=== PATIENT | female | born 1945 | race Caucasian/White ===

== ENCOUNTER 2023-05-22 14:56 | Outpatient (CLI) | payer BC, SELFPAY | END 2023-05-22 14:57 | disposition home or self-care (01) | PROVIDERS: PCP Family Medicine; Visit Provider Family Medicine | DX: E04.1 Nontoxic single thyroid nodule (principal); E78.5 Hyperlipidemia, unspecified; R53.83 Other fatigue; Z13.6 Encounter for screening for cardiovascular disorders | CPT/HCPCS: 80053; 80061; 84443 ==

== ENCOUNTER 2023-11-30 13:08 | Emergency (ER) | payer MEDICARE, SELFPAY ==
[2023-11-30 13:19] VITALS: BP 163/83; PULSE 69; RESP 16; TEMP 36.9; O2SAT 96; BMI 23.5
--- NOTE | 2023-11-30 14:02 | ED_ITS ---
HPI - Fall General Time Seen by Provider: 14:02 <Bertha Gallego MD - Last Filed: 11/30/23 16:10> Date Seen: 11/30/23 <Bertha Gallego MD - Last Filed: 11/30/23 16:10> Chief Complaint: Fall/Minor Trauma <Bertha Gallgeo MD - Last Filed: 11/30/23 16:10> Stated Complaint: Fall 6 ago, L ribs injury <Bertha Gallego MD - Last Filed: 11/30/23 16:10> Time Seen by Provider: 11/30/23 14:02 <Bertha Gallego MD - Last Filed: 11/30/23 16:10> Source: patient <Bertha Gallego MD - Last Filed: 11/30/23 16:10> Mode of arrival: ambulatory <Bertha Gallego MD - Last Filed: 11/30/23 16:10> Limitations: no limitations <Bertha Gallego MD - Last Filed: 11/30/23 16:10> History of Present Illness HPI Narrative: Audrey is a very pleasant 78-year-old female with a history of insomnia, anxiety, chronic neck and back pain who comes to the [facility] with her for complaints of left-sided chest pain. Audrey has recently been started on Ambien for insomnia and 6 days ago was up in the middle of the night admit in the kitchen cooking. She does remember this but does not remember being in the bathroom but was told that she was standing on 1 leg looking at her other leg and fell. She struck her left ribs against the bathtub. She had significant pain and it is continuing and she was unable to sleep last night. She notes that she is trying to avoid coughing and has not had any hemoptysis. The pain is quite severe when she coughs or moves. She is needing to stand up straight because of the discomfort. She is taking Tylenol for pain but it does not seem to be working. She denies abdominal pain or vomiting. <Bertha Gallego MD - Last Filed: 11/30/23 16:10> Related Data Home Medications: Home Medications Medication Instructions Recorded Confirmed multivitamin 1 tab PO QDAY 06/25/22 11/30/23 calcium carbonate 600 mg calcium 600 mg PO Q OTHER DAY 06/26/22 11/30/23 (1,500 mg) tablet (Calcium) magnesium oxide 400 mg (241.3 mg 400 mg PO Q OTHER DAY 06/26/22 11/30/23 magnesium) tablet Previous Rx's Medication Instructions Recorded escitalopram oxalate 20 mg tablet 20 mg PO QDAY #90 tabs 06/19/23 zolpidem 5 mg tablet (Ambien) 2.5 - 5 mg (0.5 - 1 x 5 mg) PO QHS 11/19/23 PRN insomnia #30 tabs tramadol 50 mg tablet 50 mg PO Q6H PRN pain #90 tabs 11/24/23 oxycodone 5 mg tablet 5 mg PO Q4H PRN pain #14 tabs 11/30/23 <Bertha Gallego MD - Last Filed: 11/30/23 16:10> Allergies/Adverse Reactions: Allergies Allergy/AdvReac Type Severity Reaction Status Date / Time alendronate sodium Allergy Mild leg Verified 11/30/23 13:23 tingling Corticosteroids Allergy Mild nausea Verified 11/30/23 13:23 (Glucocorticoids) gabapentin Allergy Mild Unknown Verified 11/30/23 13:23 iodine Allergy Mild Unknown Verified 11/30/23 13:23 sertraline Allergy Mild Unknown Verified 11/30/23 13:23 <Bertha Gallego MD - Last Filed: 11/30/23 16:10> Review of Systems Status of ROS: Reports: 6 or more systems reviewed and unremarkable except as noted in History and below <Bertha Gallego MD - Last Filed: 11/30/23 16:10> [facility] Medical History: Medical History (Updated 11/30/23 @ 17:38 by Bertha Gallego MD) Mixed hyperlipidemia ?E78.2 - Mixed hyperlipidemia (ICD-10) Insomnia ?G47.00 - Insomnia, unspecified (ICD-10) Restless leg syndrome ?G25.81 - Restless legs syndrome (ICD-10) Thyroid nodule ?E04.1 - Nontoxic single thyroid nodule (ICD-10) Stress incontinence in female ?N39.3 - Stress incontinence (female) (male) (ICD-10) Osteoporosis (05/28/17) ?M81.0 - Age-related osteoporosis without current pathological fracture (ICD- 10) Ocular rosacea ?L71.8 - Other rosacea (ICD-10) Herpes zoster (02/24/21) ?B02.9 - Zoster without complications (ICD-10) Female genital prolapse ?N81.9 - Female genital prolapse, unspecified (ICD-10) Chronic neck and back pain ?M54.2 - Cervicalgia (ICD-10) ?M54.9 - Dorsalgia, unspecified (ICD-10) ?G89.29 - Other chronic pain (ICD-10) Generalized anxiety disorder ?F41.1 - Generalized anxiety disorder (ICD-10) Major depression, chronic ?F32.9 - Major depressive disorder, single episode, unspecified (ICD-10) <Bertha Gallego MD - Last Filed: 11/30/23 16:10> Surgical History: Surgical History (Updated 06/26/22 @ 06:06 by Jono Belcher MD) History of left breast biopsy ?Z98.890 - Other specified postprocedural states (ICD-10) <Bertha Gallego MD - Last Filed: 11/30/23 16:10> Social History: Social History (Updated 06/24/22 @ 14:33 by Audrey Jimenezlubna) Narrative: , 2 kids, homemaker, non smoker, no EtOH, medical marijuana use Smoking Status: Never smoker Do you use any of these nicotine containing products: None Second hand tobacco smoke exposure: No How often do you have a drink containing alcohol: 4 or more times a week How many standard drinks containing alcohol do you have on a typical day: 1 or 2 AUDIT-C Alcohol total score: 4 Non-prescribed substance use: denies use Little interest or pleasure in doing things: not at all Feeling down, depressed, or hopeless: not at all <Bertha Gallego MD - Last Filed: 11/30/23 16:10> Exam Narrative: Exam Narrative: I did review previous notes and past medical history. Audrey is alert and oriented. She is here with her is very loving and supportive. She is standing straight and very guarded in her movement. External ears eyes nose clear. Heart with regular rate and rhythm. Lungs are clear although it is very difficult to auscultate as she is unable to take a deep breath. I do think that there is it is a noted decreased breath sounds in the left lower lung. No obvious ecchymoses. Palpation over the lateral chest wall does cause discomfort. Fortunately no pain over thoracic spine. She is otherwise moving all of her extremities. Head is atraumatic normocephalic and there is no cervical midline tenderness. <Bertha Gallego MD - Last Filed: 11/30/23 16:10> Const: Vital Signs, click to edit/add: Vital Signs - 24 hr 11/30/23 13:19 Temperature 98.4 F Pulse Rate [Pulse Oximeter] 69 Respiratory Rate 16 Blood Pressure [Ri ght Upper Arm] 163/83 H Pulse Oximetry 96 Oxygen Delivery Me thod Room Air <Bertha Gallego MD - Last Filed: 11/30/23 16:10> Vital Signs, click to edit/add: Vital Signs - 24 hr 11/30/23 13:19 Temperature 98.4 F Pulse Rate [Pulse Oximeter] 69 Respiratory Rate 16 Blood Pressure [Ri ght Upper Arm] 163/83 H Pulse Oximetry 96 Oxygen Delivery Me thod Room Air <Marino Menchaca MD - Last Filed: 11/30/23 18:59> Documenting provider has reviewed patient's vital signs: yes <Bertha Gallego MD - Last Filed: 11/30/23 16:10> Course Course ED Course: Differential diagnosis includes but is not limited to chest wall trauma, rib fractures, pleural effusion. Will go ahead with chest x-ray at this time. <Bertha Gallego MD - Last Filed: 11/30/23 16:10> Reevaluation(s) Reevaluation #1: To x-ray x-ray shows small pleural effusion in association with rib fractures 6, 7, 8 and 9. There is associated small pleural effusion. At this time will proceed with CT. Check CBC and basic panel. Examination shows no evidence of left or right upper quadrant discomfort. With palpation <Bertha Gallego MD - Last Filed: 11/30/23 16:10> Vital Signs Vital signs: Initial Vital Signs Temperature 98.4 F 11/30/23 13:19 Temperature Source Temporal Artery Scan 11/30/23 13:19 Pulse Rate 69 11/30/23 13:19 Respiratory Rate 16 11/30/23 13:19 Blood Pressure 163/83 H 11/30/23 13:19 Blood Pressure Mean 109 H 11/30/23 13:19 Blood Pressure Position Sitting 11/30/23 13:19 Pulse Oximetry 96 11/30/23 13:19 Oxygen Delivery Method Room Air 11/30/23 13:19 Vital Signs Temperature 98.4 F 11/30/23 13:19 Pulse Rate 69 11/30/23 13:19 Respiratory Rate 16 11/30/23 13:19 Blood Pressure 163/83 H 11/30/23 13:19 Pulse Oximetry 96 11/30/23 13:19 Oxygen Delivery Method Room Air 11/30/23 13:19 Temperature 98.4 F 11/30/23 13:19 Pulse Rate 69 11/30/23 13:19 Respiratory Rate 16 11/30/23 13:19 Blood Pressure 163/83 H 11/30/23 13:19 Pulse Oximetry 96 11/30/23 13:19 Oxygen Delivery Method Room Air 11/30/23 13:19 <Bertha Gallego MD - Last Filed: 11/30/23 16:10> Initial Vital Signs Temperature 98.4 F 11/30/23 13:19 Temperature Source Temporal Artery Scan 11/30/23 13:19 Pulse Rate 69 11/30/23 13:19 Respiratory Rate 16 11/30/23 13:19 Blood Pressure 163/83 H 11/30/23 13:19 Blood Pressure Mean 109 H 11/30/23 13:19 Blood Pressure Position Sitting 11/30/23 13:19 Pulse Oximetry 96 11/30/23 13:19 Oxygen Delivery Method Room Air 11/30/23 13:19 Vital Signs Temperature 98.4 F 11/30/23 13:19 Pulse Rate 69 11/30/23 13:19 Respiratory Rate 16 11/30/23 13:19 Blood Pressure 163/83 H 11/30/23 13:19 Pulse Oximetry 96 11/30/23 13:19 Oxygen Delivery Method Room Air 11/30/23 13:19 Temperature 98.4 F 11/30/23 13:19 Pulse Rate 69 11/30/23 13:19 Respiratory Rate 16 11/30/23 13:19 Blood Pressure 163/83 H 11/30/23 13:19 Pulse Oximetry 96 11/30/23 13:19 Oxygen Delivery Method Room Air 11/30/23 13:19 <Marino Menchaca MD - Last Filed: 11/30/23 18:59> MDM - Fall MDM Narrative Medical decision making narrative: 1. Multiple left-sided rib fractures-noted on x-ray. CT is pending. 2. Chest wall pain-patient will likely need stronger medication and therefore will be using oxycodone 1/2-1 tab every 4 hours as needed for discomfort. I warned patient that this will likely cause constipation she will need to be on a stool softener such as Colace. Would also recommend eating on a full stomach a nd trying to limit pain medication as much as possible. Will demonstrate splinting with the use of a pillow so that she can do some deep breathing. 3. Disposition-CT pending. Awaiting results. I have signed this patient out to my partner <Bertha Gallego MD - Last Filed: 11/30/23 16:10> Medical Records Attestation: I reviewed the patient's medical records. <Bertha Gallego MD - Last Filed: 11/30/23 16:10> Lab Data Labs: Lab Results 11/30/23 Range/Units 16:17 WBC 6.79 (4.50-11.00) K/uL RBC 4.75 (4.00-5.20) m/uL Hgb 14.0 (12.0-16.0) gm/dL Hct 43.1 (33.0-51.0) % MCV 91 (80-100) fL MCH 30 (26-34) pg MCHC 33 (32-36) gm/dL RDW Coeff of Mely 13.0 (11.5-15.5) % Plt Count 244 (140-440) K/uL Neut % (Auto) 60.9 (42.0-72.0) % Lymph % (Auto) 31.4 (20-44) % Bartholomew % (Auto) 5.9 (0.0-11.0) % Eos % (Auto) 1.3 (0.0-7.0) % Baso % (Auto) 0.4 (0.0-3.0) % Neut # (Auto) 4.13 (1.7-7.0) K/uL Lymph # (Auto) 2.13 (0.90-2.90) K/uL Bartholomew # (Auto) 0.40 (0.00-0.90) K/UL Eos # (Auto) 0.09 (0.00-0.50) K/uL Baso # (Auto) 0.03 (0.00-0.30) K/uL Abs Immat Gran (auto) 0.01 (0.00-0.30) K/uL Imm/Tot Granulo (auto) 0.1 % Sodium 141 (135-149) mmol/L Potassium 4.0 (3.6-5.1) mmol/L Chloride 104 (96-114) mmol/L Carbon Dioxide 26 (20-32) mmol/L Anion Gap 11 (7-15) mEq/L BUN 13 (7-30) mg/dL Creatinine 0.7 (0.5-1.5) mg/dL Estimated Creat Clear 46.54 Estimated GFR 90 ml/min Glucose 107 (60-115) mg/dL Calcium 10.1 (8.4-10.6) mg/dL <Bertha Gallego MD - Last Filed: 11/30/23 16:10> Lab Results 11/30/23 Range/Units 16:17 WBC 6.79 (4.50-11.00) K/uL RBC 4.75 (4.00-5.20) m/uL Hgb 14.0 (12.0-16.0) gm/dL Hct 43.1 (33.0-51.0) % MCV 91 (80-100) fL MCH 30 (26-34) pg MCHC 33 (32-36) gm/dL RDW Coeff of Mely 13.0 (11.5-15.5) % Plt Count 244 (140-440) K/uL Neut % (Auto) 60.9 (42.0-72.0) % Lymph % (Auto) 31.4 (20-44) % Bartholomew % (Auto) 5.9 (0.0-11.0) % Eos % (Auto) 1.3 (0.0-7.0) % Baso % (Auto) 0.4 (0.0-3.0) % Neut # (Auto) 4.13 (1.7-7.0) K/uL Lymph # (Auto) 2.13 (0.90-2.90) K/uL Bartholomew # (Auto) 0.40 (0.00-0.90) K/UL Eos # (Auto) 0.09 (0.00-0.50) K/uL Baso # (Auto) 0.03 (0.00-0.30) K/uL Abs Immat Gran (auto) 0.01 (0.00-0.30) K/uL Imm/Tot Granulo (auto) 0.1 % Sodium 141 (135-149) mmol/L Potassium 4.0 (3.6-5.1) mmol/L Chloride 104 (96-114) mmol/L Carbon Dioxide 26 (20-32) mmol/L Anion Gap 11 (7-15) mEq/L BUN 13 (7-30) mg/dL Creatinine 0.7 (0.5-1.5) mg/dL Estimated Creat Clear 46.54 Estimated GFR 90 ml/min Glucose 107 (60-115) mg/dL Calcium 10.1 (8.4-10.6) mg/dL <Marino Menchaca MD - Last Filed: 11/30/23 18:59> Imaging Data Rib x-rays: Attestation: I have reviewed the pertinent imaging results. <Bertha Gallego MD - Last Filed: 11/30/23 16:10> My impression: Rib fractures noted on the left. <Bertha Gallego MD - Last Filed: 11/30/23 16:10> Radiologist's impression: FINDINGS: There is demonstration of a small left basilar pleural effusion. There is no evidence of pneumothorax. The right hemithorax is clear. The cardiomediastinal silhouette is within normal limits. There are minimally displaced fractures of the left 6th, 7th, 8th, and 9th lateral posterior ribs. The bony thorax is otherwise intact. IMPRESSION: Minimal left basilar pleural effusion with adjacent compressive atelectasis. Minimally displaced fractures of the posterolateral 6th through 9th ribs. If pain and clinical symptoms persist, subtle, non-displaced injuries are not entirely excluded. <Bertha Gallego MD - Last Filed: 11/30/23 16:10> CT scan - chest: Radiologist's impression: 1. Acute minimally displaced fractures of the left posterior lateral 7th through 10th ribs. 2. Trace left pleural effusion and bibasilar atelectasis. No pneumothorax. <Marino Menchaca MD - Last Filed: 11/30/23 18:59> Discharge Plan Discharge Clinical Impression: Multiple fractures of ribs, left side, initial encounter for closed fracture, Pleural effusion <Bertha Gallego MD - Last Filed: 11/30/23 16:10> Patient Disposition: Home w/ Parent or Adult <Bertha Gallego MD - Last Filed: 11/30/23 16:10> Condition: Unchanged <Bertha Gallego MD - Last Filed: 11/30/23 16:10> Additional Instructions: Recommend using firm pillow over the area of your fractures when you need to cough or take a deep breath. This is called splinting and may help the discomfort. Unfortunately I do have to ask you to take multiple deep breaths du ring the day to ensure that your lungs are open and do not have fluid accumulating. For pain you may try Tylenol as needed. If you have continued pain you may need to use oxycodone which is a narcotic pain medication. I would use 1/2-1 tab every 4 hours as needed. This was sent to your pharmacy. Be aware that oxycodone will cause constipation and you should be on a stool softener such as Colace. Seek medical attention if he develops a fever, worsening cough, abdominal pain and as needed. <Bertha Gallego MD - Last Filed: 11/30/23 16:10> Prescriptions: New oxycodone 5 mg tablet 5 mg PO Q4H PRN (Reason: pain) Qty: 14 0RF Rx Instructions: 1/2-1 tab every 4 hours as needed for pain. No Action multivitamin Tablet 1 tab PO QDAY calcium carbonate [Calcium 600] 600 mg calcium (1,500 mg) tablet 600 mg PO Q OTHER DAY magnesium oxide 400 mg (241.3 mg magnesium) tablet 400 mg PO Q OTHER DAY escitalopram oxalate 20 mg tablet 20 mg PO QDAY Qty: 90 3RF zolpidem [Ambien] 5 mg tablet 2.5 - 5 mg PO QHS PRN (Reason: insomnia) Qty: 30 0RF tramadol 50 mg tablet 50 mg PO Q6H PRN (Reason: pain) Qty: 90 1RF <Bertha Gallego MD - Last Filed: 11/30/23 16:10> Follow Up/Referrals: Jono Belcher MD [Primary Care Provider] - <Bertha Gallego MD - Last Filed: 11/30/23 16:10> Stand Alone Forms: My[facility] Info Instructions <Bertha Gallego MD - Last Filed: 11/30/23 16:10>
--- NOTE | 2023-11-30 14:19 | XR_ITS ---
Patient: UNIQUE YOUNG Facility:?[facility] Patient ID:?[id number] Site Patient ID:?[id number]. Site :?[id number] Study:?XRay-Chest Left left ribs with PA CXR-11/30/2023 2:46:09 PM Ordering Physician:Johnny Gallego Final Report: INDICATION: Fall on the left side TECHNIQUE: Single view chest with AP and oblique views of the left COMPARISON: None available. FINDINGS: There is demonstration of a small left basilar pleural effusion. There is no evidence of pneumothorax. The right hemithorax is clear. The cardiomediastinal silhouette is within normal limits. There are minimally displaced fractures of the left 6th, 7th, 8th, and 9th lateral posterior ribs. The bony thorax is otherwise intact. IMPRESSION: Minimal left basilar pleural effusion with adjacent compressive atelectasis. Minimally displaced fractures of the posterolateral 6th through 9th ribs. If pain and clinical symptoms persist, subtle, non-displaced injuries are not entirely excluded. Dictated by Fabricio Delcid MD @ 11/30/2023 3:43:30 PM Signed by:?Fabricio Delcid MD @11/30/2023 3:43:30 PM (Electronic Signature)
--- NOTE | 2023-11-30 16:00 | CT_ITS ---
Patient: UNIQUE YOUNG Facility:?[facility] RIS Patient ID:?[id number] Site Patient ID:?[id number]. Site :?[id number] Study:?CT-Chest W/O-11/30/2023 4:45:05 PM Ordering Physician:JYOTHI Final Report: INDICATION: Multiple rib fractures. TECHNIQUE: CT of the chest without IV contrast. Coronal and sagittal reconstructions. COMPARISON: Same day chest radiograph. FINDINGS: Normal heart size. Normal caliber thoracic aorta and central pulmonary arteries. No pericardial effusion. No thoracic lymphadenopathy. The thyroid gland is normal in appearance. Trace left pleural effusion. Linear atelectasis or scarring in the lung bases. No focal consolidation or pneumothorax. No suspicious pulmonary nodules. No central endobronchial lesion or bronchial wall thickening. The visualized upper abdomen is unremarkable. Mild degenerative changes of the spine. Chronic appearing mild superior endplate compression fracture of T11. There are acute minimally displaced fractures of the left posterolateral 7th- 10th ribs with mild swelling of the intercostal musculature in this region. IMPRESSION: 1. Acute minimally displaced fractures of the left posterolateral 7th-10th ribs. 2. Trace left pleural effusion and bibasilar atelectasis. No pneumothorax. Please note that all CT scans at this facility use dose modulation, iterative reconstruction, and/or weight-based dosing when appropriate to reduce radiation dose to as low as reasonably achievable. Dictated by Brenda Jackson MD @ 11/30/2023 6:33:07 PM Signed by:?Brenda Jackson MD @11/30/2023 6:33:07 PM (Electronic Signature)
[2023-11-30 16:36] LABS: Basophils Absolute Auto 0.03 K/uL (0.00-0.30); Basophils Percent Auto 0.4 % (0.0-3.0); Eosinophils Absolute Auto 0.09 K/uL (0.00-0.50); Eosinophils Percent Auto 1.3 % (0.0-7.0); Hematocrit 43.1 % (33.0-51.0); Immature Granulocytes Abs Auto 0.01 K/uL (0.00-0.30); Immature Granulocytes Pct Auto 0.1 %; Lymphocytes Absolute Auto 2.13 K/uL (0.90-2.90); Lymphocytes Percent Auto 31.4 % (20-44); Mean Corpuscular HGB Conc 33 gm/dL (32-36); Mean Corpuscular Hemoglobin 30 pg (26-34); Mean Corpuscular Volume 91 fL (80-100); Monocytes Percent Auto 5.9 % (0.0-11.0); Neutrophils Absolute Auto 4.13 K/uL (1.7-7.0); Neutrophils Percent Auto 60.9 % (42.0-72.0); Platelet Count* 244 K/uL (140-440); Red Blood Count 4.75 m/uL (4.00-5.20); White Blood Count* 6.79 K/uL (4.50-11.00)
[2023-11-30 16:49] LABS: Slide Review Reflex No
[2023-11-30 16:53] LABS: Chloride* 104 mmol/L (96-114); Sodium* 141 mmol/L (135-149)
[2023-11-30 16:56] LABS: Anion Gap 11 mEq/L (7-15); Blood Urea Nitrogen* 13 mg/dL (7-30); Carbon Dioxide* 26 mmol/L (20-32); Creatinine* 0.7 mg/dL (0.5-1.5); Est. Creatinine Clearance* 46.54; Estimated Glomerular Filt Rate 90 ml/min; Glucose* 107 mg/dL (60-115)
[2023-11-30 16:57] LABS: Calcium* 10.1 mg/dL (8.4-10.6)
== END 2023-11-30 19:19 | disposition home or self-care (01) ==
PROVIDERS: Family Medicine; Emergency Provider Emergency Medicine Emergency Medical Services; PCP Family Medicine
DX: S22.42XA Multiple fractures of ribs, left side, initial encounter for closed fracture (principal); I26.99 Other pulmonary embolism without acute cor pulmonale; W18.30XA Fall on same level, unspecified, initial encounter
CPT/HCPCS: 36415; 71101; 71250; 80048; 85025; 99284; 99285

== ENCOUNTER 2024-05-27 08:55 | Outpatient (CLI) | payer MEDICARE, SELFPAY | END 2024-05-27 08:56 | disposition home or self-care (01) | PROVIDERS: PCP Family Medicine; Visit Provider Family Medicine | DX: E78.2 Mixed hyperlipidemia (principal); R25.1 Tremor, unspecified; E04.1 Nontoxic single thyroid nodule | CPT/HCPCS: 80048; 80061; 84443 ==